=== PATIENT | male | born 1960 | race African-American/Black ===

== ENCOUNTER 2016-08-04 00:36 | Emergency (ER) | payer OTHER ==
[~2016-08-04] VITALS: Ht 182.9 cm; Wt 91.0 kg
[2016-08-04] MEDS ORDERED: LORAZEPAM 2MG/ML CPJ IV ONE (04:45)
[2016-08-04] MEDS ORDERED: MORPHINE SULFATE 4 MG/ML CPJ (NOT FOR IM USE) IV ONE (04:45)
[2016-08-04] MEDS ORDERED: LIDOCAINE HCL/EPINEPHRINE 1%-EPI 1:100,000 20 ML VIAL MC ONE (04:45)
[2016-08-04] MEDS ORDERED: ONDANSETRON HCL 4MG/2ML VIAL IV ONE (04:45)
[2016-08-04] MEDS ORDERED: TETRACAINE 0.5% OPHTH DROPS 4ML LEFTEYE ONE (04:45)
[2016-08-04] MEDS ORDERED: PROPOFOL 200MG/20ML VIAL IV ONE ×2 (05:00→05:28)
[2016-08-04] MEDS ORDERED: KETAMINE HCL 50 MG/ML 10ML IV ONE (05:00)
[2016-08-04] MEDS ORDERED: LIDOCAINE HCL 1% 20ML VIAL (Pyxis) INJ ONE (05:08)
[2016-08-04] MEDS ORDERED: KETAMINE HCL 50 MG/ML 10ML ONE (05:28)
[2016-08-04 05:34] LABS: BASOPHILS % 0.8 % (0.0-2.0); EOSINOPHILS % 0.5 % (0.0-5.0); HEMATOCRIT. 45.1 % (42.0-52.0); HEMOGLOBIN. 15.6 g/dL (14.0-18.0); LYMPHOCYTES % 10.5 % (20.0-50.0); MEAN CORPUSCULAR HEMOGLOBIN 32.7 pg (28.0-32.0); MEAN CORPUSCULAR HGB CONC 34.7 g/dL (31.0-37.0); MEAN CORPUSCULAR VOLUME 94.4 fL (80.0-94.0); MEAN PLATELET VOLUME 8.4 fl (7.4-10.4); MONOCYTES % 5.2 % (2.0-8.0); PLATELET 136 x1000/uL (130-400); RED BLOOD CELL COUNT 4.78 mill/uL (4.7-6.1); RED CELL DISTRIBUTION WIDTH 13.2 % (11.6-14.6); WHITE BLOOD COUNT 8.9 x1000/uL (4.5-11.0)
[2016-08-04 05:40] LABS: INR 1.1; PROTHROMBIN TIME 11.3 sec
[2016-08-04 05:45] LABS: ALBUMIN 3.9 g/dL (3.4-5.0); ANION GAP 10; CALCIUM 9.1 mg/dL (8.5-10.1); CARBON DIOXIDE 26 mEq/L (21-32); CHLORIDE 108 mEq/L (98-107); INDEX HEMOLYSI 1 (1-3); INDEX ICTERIC 1 (1-4); INDEX LIPEMIC 1 (1-3); UREA NITROGEN BLOOD 10 mg/dL (7-21)
[2016-08-04 05:48] LABS: ALANINE AMINOTRANSFERASE 21 IU/L (13-61); eGFR > 60 mL/min (>60)
[2016-08-04 07:31] LABS: HEPATITIS B SURFACE ANTIGEN NEGATIVE
[2016-08-04 07:58] LABS: HEPATITIS C VIR.AB 0.11 INDEXVAL (0.00-0.80)
[2016-08-04 07:59] LABS: HEPATITIS B CORE AB IGM NEGATIVE
[2016-08-04 08:00] LABS: HEPATITIS A AB IGM NEGATIVE (NEGATIVE)
[2016-08-04 08:43] VITALS: BP 150/84
== END 2016-08-04 09:00 | disposition short-term general hospital (02) ==
LOC: ER 00:37
DX: S02.82XA Fracture of other specified skull and facial bones, left side, initial encounter for closed fracture (principal); T79.A0XA Compartment syndrome, unspecified, initial encounter; Z86.73 Personal history of transient ischemic attack (TIA), and cerebral infarction without residual deficits; X58.XXXA Exposure to other specified factors, initial encounter; Y93.89 Activity, other specified; Y99.8 Other external cause status; Y92.89 Other specified places as the place of occurrence of the external cause
CPT/HCPCS: 36415; 67715; 70450; 70486; 80053; 85025; 85610; 86703; 96374; 96375; 99152; 99291; J2060; J2270; J2405; J3490; X7700; Z7610; 86705; 86709; 86803; 87340; J2704